=== PATIENT | female | born 1995 | race Caucasian/White ===

== ENCOUNTER 2022-09-13 10:43 | Day surgery (SDC) | payer BC, SELFPAY ==
[2022-09-13] VITALS (9 sets, daily range): BP systolic 117–130; BP diastolic 47–74; PULSE 48–64; RESP 14–23; TEMP 36.4–37.1; O2SAT 96–100; BMI 22.1
--- NOTE | 2022-09-13 07:04 | W.PM.DSUDISC ---
Date of service: 09/13/22 Time of Service: 17:00 Discharge Plan Discharge Details Attending Provider: Luis M Luna Primary Care Provider: JORDON PRICE Home Meds and New Rx's Prescriptions: New aspirin 81 mg tablet,delayed release (DR/EC) 81 mg PO DAILY 14 Days Qty: 14 0RF naproxen 250 mg tablet 250 - 500 mg PO BID PRNQty: 40 0RF Rx Instructions: take with a meal oxycodone 5 mg tablet 5 - 10 mg PO Q4H MDD 30 mg PRN (Reason: moderate to severe pain) Qty: 18 0RF Continued multivitamin Tablet 1 tab PO DAILY cetirizine [Zyrtec] 10 mg Tablet 10 mg PO HS ashwagandha extract 120 mg Capsule 120 mg PO DAILY Discharge Instructions Additional Instructions: Surgery: Right knee arthroscopy with medial meniscus root repair, medial tibial plateau chondroplasty, anteromedial plica excision Activity: Toe-touch weightbearing with crutches for 6 weeks. Seated/ non-weight bearing flexion 0-90 degrees maximum for 6 weeks. 120 degrees maximum flexion for 8 weeks. Spin/bike after 8 weeks. No weighted deeper flexion (squats, lunges) for 10 weeks. No high?impact activities like running for 12 weeks. A physical therapy prescription will be sent electronically to start in 2 to 3 weeks. Prescriptions: Aspirin 81 mg take 1 daily to prevent a blood clot for 14 days Naproxen 250 mg take 1-2 every 12 hours with a meal as needed for moderate pain Oxycodone 5 mg take 1-2 every 4-6 hours as needed for severe pain You may use [id number] Tylenol (acetaminophen) as needed for mild pain. These pain medications may be taken all at once or in different combinations as needed. Also, recommend Colace (docusate) as a stool softener as surgery and pain medicine cause constipation. You may try [id number] diphenhydramine (Benadryl) 25-50 mg nightly as a sleep aid Dressings: Leave dressing in place for 3 days. May then remove and leave open to air or cover incisions with Band-Aids. Leave the sticky Steri-Strips in place until they fall off or remove them after you shower. May shower after 5 days. Follow-up: 10-[address] Luna You may take off the leg compression stockings this evening at home. You may also leave them on a few days longer if you have a history of leg swelling or edema. Let us know right away if you develop any redness, drainage, fevers, chest pain, or trouble breathing. Do not drink alcohol or drive for at least 24 hours after anesthesia. Please call the office during business hours with any questions or concerns. DS: Diagnosis Discharge Diagnosis (1) Tear of medial meniscus of right knee: Status: Acute
--- NOTE | 2022-09-13 07:06 | W.PM.OP ---
Date of service: 09/13/22 Time of Service: 14:00 Operative Note Operative Note DATE OF PROCEDURE: 09/13/22 PRE-OP DIAGNOSIS: Right knee 1. Medial meniscus tear 2. Synovial plica 3. Chondromalacia POST-OP DIAGNOSIS: same PROCEDURE: Right knee 1. Medial meniscus root repair, CPT #98293: Chronic root tear repaired through bone tunnel and secured with SwiveLock to anterior tibia 2. Greater than 2 compartment synovectomy, CPT #79447: Resection of large anterior medial plical band impinging in the medial gutter and patellofemoral compartments; excision of abundant intercondylar, patellofemoral and lateral synovitis as well. 3. Chondroplasty, CPT #83732: Localized grade IV chondromalacia medial aspect medial tibial plateau with unstable surrounding cartilage flaps SURGEON: Luis M Luna DOCUMENT MANAGEMENT CONSULTANT: Iraida Liriano ANESTHESIA TYPE: Local By Surgeon and General LMA/ETT Refer to Anesthesia Record ESTIMATED BLOOD LOSS: 5 PATHOLOGY: none sent TOURNIQUET TIME: 0 Patient was transported to: PACU Patient's condition: stable Indications: Please see complete medical record for details. Findings: Exam under anesthesia: Full range of motion, no instability, medial crepitation with range of motion Arthroscopic findings: Significant synovitis patellofemoral, medial, intercondylar, and lateral compartments. Large impinging plical band extending from anteriorly to medial gutter engaging the patellofemoral compartment and indenting the medial femoral condyle. Chronic?appearing medial meniscus root tear. About 1 x 1 cm focal grade IV chondromalacia medial aspect medial tibial plateau just beneath the medial meniscus body with unstable surrounding cartilage flaps. Intact ACL. Intact lateral meniscus with minimal fraying. Small medial and lateral gutter as well as patellofemoral marginal osteophytes. Moderately diffuse grade II chondromalacia medial femoral condyle. Procedure Description: In the operating room, general anesthesia was induced. The patient was positioned supine on the operating room table. All bony prominences were well-padded. Preoperative antibiotics were administered. The knee was prepped and draped in the usual sterile fashion. The correct patient, procedure, and side of the procedure were all verified prior to incision. Exam under anesthesia was performed. 10 cc of 0.25% bupivacaine containing epinephrine was infiltrated about the planned anteromedial and anterolateral knee arthroscopy portals. The portals were established and a complete diagnostic arthroscopy was performed with relevant findings detailed above. The mechanical shaver was used to remove pathologic synovium from the suprapatellar space, intercondylar area, lateral compartment, and resect large plical band in the medial gutter, anteromedial and patellofemoral compartments. The probe was then used to test the focal medial cartilage lesion. The surrounding cartilage had unstable free edge flaps that could be readily flipped up and were impending loose bodies. The meniscus biter and shaver were used to resect only as much cartilage as necessary to establish stable margins for the lesion. Microfracture was considered, but the moderate chondromalacia on the medial femoral condyle seemed a contraindication. There was also no good trajectory for small K wire approach anyway perpendicular to the lesion. Microfracture awls would only probably cause a more sclerotic lesion and worsening of medial compartment status. The medial meniscus was thoroughly inspected. It had good quality through the anterior horn, body and majority of the posterior horn. There was a complete radial tear just off the root, which actually correlates to reviewing her MRI from May 2020 that worsened on her MRI done in May 2022. Given the patient's young age and high activity level, decision was made to proceed with root repair with the goals of preserving her medial compartment, which had clearly worsened over the past 2 years without a functional medial meniscus. The root repair guide was placed appropriately. A small pretibial incision was made. The flip cutter drill was used, the significantly firm bone made advancing the drill difficult. The mild narrowing of the medial compartment also made position of the guide challenging. The drill exited at the appropriate level posteriorly but slightly to medial for a good repair. The drill guide and drill was redirected and was to anterior and central. A fresh sharp drill was then used the drill guide adjusted 1 more time and successfully deployed to the appropriate level of the posterior margin just beneath the free edge of the posterior horn of the meniscus. A fiber stick was passed through the tunnel and shuttle stitches secured to the anterior tibia. The knee scorpion was then used to place 2 0.9 mm FiberLink's in cinch mode securing the meniscus above and medial to the tunnel. The repair sutures were shuttled through the bone tunnel and the incision extended slightly distally for a good bone bridge suture anchor repair. The hard bone required predrilling with the 2.5, 3.5, undersized punch, regular/punch, and tap. The repair sutures were appropriately tensioned and secured to a 4.75 mm bio composite SwiveLock anchor, which was ensured to be flush with the anterior medial tibia. The repair was inspected the knee and posterior horn now stable. Mechanical shaver used to remove debris. Under direct arthroscopic visualization an 18-gauge needle was passed into the knee from superolateral into the suprapatellar pouch. The knee was copiously irrigated with arthroscopic fluid until there was a clear effluent before being drained of all fluid. The anteromedial and anterolateral portals were closed in 3-0 Monocryl in a buried interrupted fashion. 20 cc of 0.25% bupivacaine with epinephrine containing 4 mg of morphine was infiltrated into the knee through the previously placed needle. The anterior incision was injected with 10 cc of 0.5% bupivacaine with epinephrine. Mastisol, Steri-Strips, and 4 x 4 gauze were applied over the incisions followed by sterile soft roll. The knee was then wrapped gently with an SILVESTRE comressive bandage. The patient awoke from anesthesia without complication and was transferred to the recovery room in a stable condition.
[2022-09-13] MEDS: Lactated Ringers 1,000 ML 30 ML IV (12:05)
--- NOTE | 2022-09-13 12:38 | W.ANESPRE ---
General Info Date of Service Date Performed: 09/13/22 Height: 5 ft 6 in Weight: 62.4 kg Body Mass Index (BMI): 22.1 Surgical Procedure: Operation Date: 09/13/22 13:10 Proposed Procedure Side Surgeon p Knee Arthroscopy w/any other indicated surgery/Possible Medial Meniscus Repair w/Bone Marrow Stimulation Right Luis M Luna MD Meds Allergies and Home Medications Allergies Allergy/AdvReac Type Severity Reaction Status Date / Time Penicillins Allergy Intermediate Swelling/Ed Verified 09/12/22 11:29 esther Home Medication Medication Instructions Recorded ashwagandha extract 120 mg capsule 120 mg PO DAILY 09/12/22 cetirizine 10 mg tablet (Zyrtec) 10 mg PO HS 09/12/22 multivitamin 1 tab PO DAILY 09/12/22 Current Visit Medications: Current Medications Generic Name Dose Route Start Last Admin Trade Name Freq PRN Reason Stop Dose Admin Ringer's Solution 1,000 mls @ 30 mls/hr 09/13/22 06:00 09/13/22 12:05 IV 10/12/22 23:59 30 mls/hr INFUSION EZEQUIEL Administration Cefazolin Sodium/Dextrose 2 gm in 50 mls @ 100 mls/hr 09/13/22 06:00 Ancef Duplex IVPB 09/13/22 16:00 PREOP EZEQUIEL IV Miscellaneous Supplies 1 each 09/13/22 06:00 Iv Access IV 10/12/22 23:59 DIRECTED EZEQUIEL Oxycodone HCl 0 mg 09/13/22 07:04 Oxycodone 5 Mg Tab PO Q3H PRN PRN Pain Sodium Chloride 0 ml 09/13/22 06:00 Normal Saline Flush 10 Ml Syr IV 10/12/22 23:59 PRN PRN Sodium Chloride 0 ml 09/13/22 06:00 Normal Saline 10 Ml Vial IJ 10/12/22 23:59 DIRECTED PRN Sterile Water 0 ml 09/13/22 06:00 Water,Injection,Sterile 10 Ml Vial IJ 10/12/22 23:59 DIRECTED PRN PFSH Active Problems Active Problems: Problem Status Onset Code Tear of medial meniscus of right knee [id number] Medical History Medical History Pityriasis rubra pilaris Surgical History Surgical History Hx of knee surgery bone growth removal per pt Tobacco Smoking/Tobacco Use Status: Never Alcohol Alcohol Intake: current Alcohol intake frequency: holidays/special occasions only Substance Use Substance use: Never Substance use type: does not use Vital Signs and Lab Results Vital Signs Most Recent Vital Signs in EMR: Most Recent Vital Signs Temp Pulse Resp BP Pulse Ox 36.4 C L 48 L 16 118/66 100 09/13/22 11:18 09/13/22 11:18 09/13/22 11:18 09/13/22 11:18 09/13/22 11:18 Point of Care Results Point of Care Results: POC- Test(urine) Negative 09/13/22 11:51 Lab Results Blood Type / Crossmatch: No Data to Display Complete Blood Count: No Data to Display Complete Metabolic Panel: No Data to Display Liver Function Panel: No Data to Display Coagulation Panel: No Data to Display Cardiac Panel: No Data to Display Arterial Blood Gas: No Data to Display Venous Blood Gas: No Data to Display Pancreas Panel: No Data to Display Thyroid Panel: No Data to Display Infectious Disease: No Data to Display Blood Cultures: No Data to Display Toxicology Panel: No Data to Display Panel: No Data to Display Anesthesia Assessment and Plan Anesthesia History Personal History: No History of Anesthesia Complications Family History: No Family History of Anesthesia Complications Exercise Tolerance Exercise Tolerance: Metabolic Equivalents>4 Pertinent Negatives Pertinent Negatives: No Symptoms of GERD Cardiac & Pulmonary Exam Cardiac Exam: Normal S1/S2 Heart Sounds Pulmonary Exam: Clear Bilateral Breath Sounds Implantable Cardiac Device Does patient have a Pacemaker or an ICD?: No Airway Exam Known Difficult Airway: No Mallampati Class: 2 Mouth Opening: Normal (> 3cm) Thyromental Distance: Greater than 3 cm Neck Range of Motion: Full ROM Neck Circumference: Normal Teeth Condition: Normal Dentition ASA Classification ASA Score: ASA 1 Emergency Case?: No NPO Status NPO Status: NPO Clears >2 hours, Solids >8 hours Status Status: Negative HCG Anesthesia Plan Resuscitation Status: Full Code Anesthesia Technique: General Anesthesia Airway Planned: LMA Monitors Used: Standard Monitors Preoperative Comments:: Discussed spinal vs GA. Pt prefers general.
[2022-09-13] MEDS: ceFAZolin 2 GM/50 ML BAG IVPB (13:58)
[2022-09-13] MEDS: Bupivacaine 0.5% Pres-Free W/EPI 30 ML VIAL (14:18)
[2022-09-13] MEDS: MORPHine 4 MG/ML SYR (14:28)
[2022-09-13] MEDS: EPINEPHrine 30 MG/30 ML VIAL (15:43)
[2022-09-13] MEDS: Bupivacaine 0.25% Pres-Free W/EPI 30 ML VIAL (16:05)
[2022-09-13] MEDS: HYDROmorphone 2 MG/ML SYR IVP ×2 (16:44→17:07)
--- NOTE | 2022-09-13 17:17 | W.ANESPOSTOP ---
Postoperative Evaluation Date, Time and Location Date Performed: 09/13/22 Time Performed: 17:17 Patient Location: Day Surgery Unit Vital Signs Most Recent Imported Vital Signs: Most Recent Vital Signs Temp Pulse Resp BP Pulse Ox 36.8 C 61 15 130/62 100 09/13/22 17:05 09/13/22 17:05 09/13/22 17:05 09/13/22 17:05 09/13/22 17:05 Pain Score Most Recent Pain Score: Most Recent Pain Score Pain Level 3 09/13/22 16:55 Assessment Mental Status: Awake (Alert & Oriented to Patient Baseline) Airway and Respiratory Function: Patent airway with normal (patient baseline) respiratory exam Cardiovascular Function: Hemodynamically Stable Hydration Status: Adequately Hydrated Nausea & Vomiting: No Nausea or Vomiting Pain: Pain is tolerable per patient Peripheral Nerve Block: Patient did not receive a nerve block
[2022-09-13] MEDS: oxyCODONE 5 MG TAB PO (17:27)
== END 2022-09-13 17:58 | disposition home or self-care (01) ==
PROVIDERS: PCP Registered Nurse; Visit Provider Student in an Organized Health Care Education/Training Program
PROC: (CPT 29870; principal; 2022-09-13 13:00)
DX: M23.231 Derangement of other medial meniscus due to old tear or injury, right knee (principal); M94.261 Chondromalacia, right knee; M65.861 Other synovitis and tenosynovitis, right lower leg
CPT/HCPCS: 29882; 29876; 81025; J0131; J0690; J1100; J1170; J1885; J2270; J2405; J2704; J3475